=== PATIENT | male | born 1955 | race Caucasian/White ===

== ENCOUNTER 2020-07-05 11:47 | Inpatient (IN) | payer OTHER ==
[~2020-07-05] VITALS: Ht 170.2 cm; Wt 81.2 kg
[2020-07-05 12:04] VITALS: BP 142/98
[2020-07-05 12:14] LABS: ABSOLUTE NEUTROPHILS 3.3 thou/uL (1.4-8.2); BASOPHILS 0.9 % (0.0-2.0); EOSINOPHILS 1.2 % (0.0-3.0); HEMATOCRIT 48.2 % (42.0-52.0); HEMOGLOBIN 16.2 gm/dL (14.0-18.0); LYMPHOCYTES 31.2 % (24.0-44.0); MCH 32.4 pg (26.0-34.0); MCHC 33.6 g/dL (28.0-37.0); MCV 96.3 fL (80.0-100.0); MONOCYTES 11.2 % (1.0-8.0); PLATELET COUNT 215 thou/uL (150-400); POLYS 55.5 % (36.0-66.0); RBC 5.01 mil/uL (4.50-6.00); WBC 5.9 thou/uL (4.0-11.0)
[2020-07-05 12:24] LABS: ANION GAP 9 mmol/L (7-16); BUN 19 mg/dL (7-18); CALCIUM 8.8 mg/dL (8.5-10.1); CHLORIDE 99 mmol/L (98-107); CO2 26 mmol/L (21-32); GLUCOSE 101 mg/dL (74-106); SODIUM 134 mmol/L (136-145)
[2020-07-05 12:33] LABS: TROPONIN-I <0.06 ng/mL (<0.06)
--- NOTE | 2020-07-05 12:53 | NUR ---
TITRATED CARDIZEM FROM 10 MG/HR TO 15 MG/HR
[2020-07-05 14:00] LABS: FOLIC ACID 14.4 ng/mL (8.6-58.9)
[2020-07-05 14:05] LABS: CHOLESTEROL 277 mg/dL (<200); HDL CHOLESTEROL 83 mg/dL (>40); LDL CHOLESTEROL 173 mg/dL (<100); TC:HDL 3.3 Ratio (Not establshd); TRIGLYCERIDE 107 mg/dL (<150); VLDL 21 mg/dL (<40)
--- NOTE | 2020-07-05 14:47 | 2DMMODE ---
[facility] [place] [address] 2 D/M-MODE ECHOCARDIOGRAM Name: SEBAS ROBERT Room #: 170-3 ADM IN M.R.#: [id number] Admission: 07/05/20 Attend Phys: Luisito Palacios MD Discharge: Date of : 59 Report #: [id number] THIS REPORT FOR: cc: FAM - No family physician/PCP FAM - No family physician/PCP Anup Garcia MD ~ APPROVED REPORT Study performed: 07/05/2020 14:04:41 EXAM: Comprehensive 2D, Doppler, and color-flow Echocardiogram Patient Location: ER Status: routine BSA: 1.93 HR: 100 bpm BP: 133/92 mmHg Rhythm: Atrial Fibrillation Other Information Study Quality: Good Indications Afib with RVR. 2D Dimensions RVDd: 34.49 mm IVSd: 12.17 (7-11mm) LVOT Diam: 23.61 (18-24mm) LVDd: 40.19 mm PWd: 10.18 (7-11mm) Ascending Ao: 29.50 (22-36mm) LVDs: 29.63 (25-40mm) Aortic Root: 29.68 mm Volumes Left Atrial Volume (Systole) Single Plane 4CH: 51.79 mL Single Plane 2CH: 66.01 mL LA ESV Index: 33.00 mL/m2 Aortic Valve AoV Peak Frnacesco.: 1.15 m/s AO Peak Gr.: 5.33 mmHg LVOT Max P.79 mmHg LVOT Max V: 0.84 m/s LAMBERT Vmax: 3.17 cm2 [facility] [address] [place] [address] 2 D/M-MODE ECHOCARDIOGRAM Name: SEBAS ROBERT Room #: 170-3 ADM IN M.R.#: [id number] Admission: 07/05/20 Attend Phys: Abilio Lazaro Discharge: Date of : 59 Report #: [id number] Mitral Valve MV Decel. Time: 228.26 ms MV E Max Francesco.: 0.74 m/s Pulmonary Valve PV Peak Francesco.: 0.65 m/s PV Peak Gr.: 1.68 mmHg Pulmonary Vein P Vein S: 0.58 m/s P Vein D: 0.22 m/s P Vein S/D Ratio: 2.64 Tricuspid Valve TR Peak Francesco.: 2.30 m/s RAP Estimate: 5.00 mmHg TR Peak Gr.: 21.18 mmHg PA Pressure: 26.00 mmHg Left Ventricle The left ventricle is normal size. There is normal LV segmental wall motion. Mild concentric left ventricular hypertrophy. Left ventricular systolic function is normal. LVEF is 55%. This study is not technically sufficient to allow evaluation of the LV diastolic function due to atrial fibrillation. Right Ventricle The right ventricle is normal size. The right ventricular systolic function is normal. Atria The left atrium size is normal. The right atrium size is normal. Aortic Valve The aortic valve is normal in structure. No aortic regurgitation is present. There is no aortic valvular stenosis. Mitral Valve The mitral valve is normal in structure. Mild mitral regurgitation. No evidence of mitral valve stenosis. Tricuspid Valve The tricuspid valve is normal in structure. Mild tricuspid regurgitation. Estimated PAP is 25-30mmHg. Pulmonic Valve The pulmonary valve is normal in structure. Trace pulmonic [facility] [address] [place] [address] 2 D/M-MODE ECHOCARDIOGRAM Name: SEBAS ROBERT Room #: 170-3 ADM IN .R.#: [id number] Admission: 07/05/20 Attend Phys: Abilio Lazaro Discharge: Date of : 59 Report #: [id number] regurgitation. Great Vessels The aortic root is normal in size. The ascending aorta is normal in size. IVC is normal in size and collapses >50% with inspiration. Pericardium There is no pericardial effusion. <Conclusion> The left ventricle is normal size. Mild concentric left ventricular hypertrophy. Left ventricular systolic function is normal. The right ventricle is normal size. The left atrium size is normal. The aortic valve is normal in structure. Mild mitral regurgitation. Mild tricuspid regurgitation. Estimated PAP is 25-30mmHg. <ELECTRONICALLY SIGNED> By: Anup Garcia MD 07/05/20 1447 [id number] Anup Garcia MD /PRO
--- NOTE | 2020-07-05 17:26 | NUR ---
THIS NURSE RETURNS FROM BREAK AND PATIENT IS SITTING AT EDGE OF BED STATING THAT HE HAS HAD ENOUGH OF BEING IN THE HOSPITAL AND IS LEAVING. THIS NURSE ASKED PATIENT IF THERE WAS ANYTHING I COULD DO TO HAVE HIM STAY AND HE REFUSED. PT INFORMED OF MANY RISK OF LEAVING AND HE STATES HE UNDERSTANDS RISKS AND STILL WISHES TO LEAVE. DR COLE NOTIFIED. IVS REMOVED AND AMA FORM SIGNED
[2020-07-05 17:27] VITALS: BP 118/63
--- NOTE | 2020-07-06 07:15 | EKG ---
[address] [place] [address] ELECTROCARDIOGRAM REPORT Name: SEBAS ROBERT Room #: 170-3 [facility] IN M.R.#: [id number] Admission: 07/05/20 Attend Phys: Luisito Palacios MD Discharge: 07/05/20 Date of : 59 Report #: [id number] [facility] ED Test Date: 2020-07-05 Test Time: 11:51:53 Pat Name: SEBAS ROBERT Department: Room: 170 Gender: M Legal Coordinator: MIR : 1955 Requested By: Aster Couch Order Number: [id number] MD: Elvis Mcrae Measurements Intervals [place] Rate: 144 P: DE: QRS: -5 QRSD: 95 T: 56 QT: 291 QTc: 451 Interpretive Statements Atrial fibrillation RSR' in V1 or V2, right VCD or RVH Probable left ventricular hypertrophy No previous ECG available for comparison Electronically Signed On 07-06-2020 7:15:09 REFRIGERATION TECHNICIAN by Elvis Mcrae [email or web address] <ELECTRONICALLY SIGNED> By: Elvis Mcrae MD, [facility] 07/06/20 0715 1151 50 Elvis Mcrae MD, FACC /EPI
== END 2020-07-05 17:20 | disposition left against medical advice (07) | DRG 310 ==
LOC: ER 11:47 → EROBS 13:49
PROVIDERS: Emergency Medicine; Nurse Practitioner Adult Health; ADMIT Hospitalist; ATTEND Hospitalist
DX: I48.91 Unspecified atrial fibrillation (principal); F19.10 Other psychoactive substance abuse, uncomplicated; Z53.29 Procedure and treatment not carried out because of patient's decision for other reasons; Z82.49 Family history of ischemic heart disease and other diseases of the circulatory system; Z71.9 Counseling, unspecified; Z71.6 Tobacco abuse counseling